=== PATIENT | male | born 1935 | race Caucasian/White ===

== ENCOUNTER → 2016-12-14 | Outpatient (CLI) | payer MEDICARE, BC, OTHER | END | disposition home or self-care (01) | LOC: PCVCCLINIC 15:15 | PROVIDERS: ATTEND Internal Medicine Cardiovascular Disease | DX: G45.9 Transient cerebral ischemic attack, unspecified (principal); I25.810 Atherosclerosis of coronary artery bypass graft(s) without angina pectoris; I10 Essential (primary) hypertension; I35.0 Nonrheumatic aortic (valve) stenosis; I73.9 Peripheral vascular disease, unspecified; E11.9 Type 2 diabetes mellitus without complications; E78.5 Hyperlipidemia, unspecified; Z88.8 Allergy status to other drugs, medicaments and biological substances; Z79.82 Long term (current) use of aspirin; Z79.899 Other long term (current) drug therapy; Z95.1 Presence of aortocoronary bypass graft; Z87.891 Personal history of nicotine dependence | CPT/HCPCS: 80061; 93005; G0463 ==

== ENCOUNTER → 2017-06-21 | Outpatient (CLI) | payer MEDICARE, BC, OTHER | END | disposition home or self-care (01) | LOC: PCVCCLINIC 11:10 | PROVIDERS: ATTEND Internal Medicine Cardiovascular Disease | DX: I25.10 Atherosclerotic heart disease of native coronary artery without angina pectoris (principal); I12.0 Hypertensive chronic kidney disease with stage 5 chronic kidney disease or end stage renal disease; I35.0 Nonrheumatic aortic (valve) stenosis; I77.9 Disorder of arteries and arterioles, unspecified; E78.00 Pure hypercholesterolemia, unspecified; N18.6 End stage renal disease; I48.0 Paroxysmal atrial fibrillation; R94.31 Abnormal electrocardiogram [ECG] [EKG]; Z99.2 Dependence on renal dialysis; Z87.891 Personal history of nicotine dependence; Z79.899 Other long term (current) drug therapy | CPT/HCPCS: 80061; 93005; G0463 ==